=== PATIENT | male | born 1995 | race Caucasian/White ===

== ENCOUNTER 2020-01-24 04:04 | Emergency (ER) | payer SELFPAY ==
[2020-01-24 04:06] VITALS: BP 142/93; PULSE 91; RESP 18; TEMP 36.2; O2SAT 96; BMI 34.9
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
[2020-01-24 04:10] VITALS: RESP 13
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
[2020-01-24] MEDS: sodium chloride 0.9% 1,000 ML 100 ML IV (04:33)
[2020-01-24] MEDS: fentaNYL 50 mcg/mL INJ 2mL 100 MCG IVP (04:33)
[2020-01-24 04:34] VITALS: BP 129/77; PULSE 73; RESP 12; TEMP 36.6; O2SAT 100
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
[2020-01-24 04:38] LABS: Basophils % 0.2 %; Eosinophils # 0.1 10^3/uL (0.0-0.8); Eosinophils % 0.8 %; Hematocrit 44.5 % (42.0-52.0); Hemoglobin 15.6 g/dL (11.7-16.6); Lymphocytes % 12.3 %; Mean Corpuscular HGB Conc 35.1 g/dL (30.0-36.0); Mean Corpuscular Hemoglobin 31.1 pg (28.0-34.0); Mean Corpuscular Volume 88.8 fL (80-94); Mean Platelet Volume 10.7 fL (7.4-10.4); Monocytes # 0.6 10^3/uL (0.2-0.9); Monocytes % 3.7 %; Neutrophils # 13.43 10^3/uL (1.8-7.7); Neutrophils % 82.3 %; Nucleated Red Blood Cells % 0 %; Platelet Count 254 10^3/cmm (130-400); Red Blood Count 5.01 10^6/uL (4.1-5.3); Red Cell Distribution Width 11.5 % (12.1-15.1); White Blood Count 16.3 10^3/uL (4.0-10.0)
[2020-01-24 04:54] LABS: INR 1.04 (0.8-1.2)
[2020-01-24 04:55] LABS: Partial Thromboplastin Time 23.2 SECONDS (23.9-36.7)
[2020-01-24 04:58] LABS: Alanine Aminotransferase 29 U/L (0-41); Albumin Level 4.6 g/dL (3.5-5.2); Alkaline Phosphatase 82 IU/L (40-130); Anion Gap 17.4 (5-19); Aspartate Amino Transferase 29 U/L (0-40); Blood Urea Nitrogen 12 mg/dL (6-20); Calcium 8.6 mg/dL (8.5-10.5); Carbon Dioxide 21 mmol/L (22-29); Chloride 103 mmol/L (98-107); Globulin 2.7 g/dL (1.3-4.6); Glomerular Filtration Rate 90.3 mL/min (90-130); Glucose 105 mg/dL (65-115); Magnesium 2.1 mg/dL (1.7-2.3); Osmolality Calculated 282 mOsm/kg (285-295); Potassium 3.4 mmol/L (3.5-5.1); Sodium 138 mmol/L (136-145); Total Bilirubin 0.4 mg/dL (0.15-1.2); Total Protein 7.3 g/dL (6.6-8.7)
[2020-01-24] MEDS: HYDROmorphone 1 mg/mL INJ 1 mL IVP (05:30)
[2020-01-24] MEDS: propofol 1,000 MG/100 ML INJ 12.5 MG IV (05:30)
[2020-01-24 05:34] VITALS: BP 136/71; PULSE 98; RESP 12; O2SAT 99
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
== END 2020-01-24 05:51 | disposition short-term general hospital (02) ==
PROVIDERS: Emergency Provider Emergency Medicine
DX: S09.8XXA Other specified injuries of head, initial encounter (principal); T07.XXXA Unspecified multiple injuries, initial encounter; V86.59XA Driver of other special all-terrain or other off-road motor vehicle injured in nontraffic accident, initial encounter
CPT/HCPCS: 12345; 31500; 36415; 71045; 72170; 80053; 83735; 85025; 85610; 85730; 86850; 86900; 86920; 94002; 94799; 96365; 96366; 96368; 96375; 99282; 99291; J1170; J2704; J3010; J7030; P9016

== ENCOUNTER 2020-01-26 06:59 | Outpatient (CLI) | payer SELFPAY ==
--- NOTE | 2020-01-26 07:07 | USCV_ITS ---
Kavon Salinas Age: 24 Gender: M : 1995 Exam Date: 01/26/2020 07:14 Ordering Phys: Zita Mackay APN- MARISSA CEREAL MILLER Technologist: Jaleesa Barrow Exam Location: [facility] [place] Indication: RT LOWER EXTREMITY PAIN HISTORY: Lower extremity pain. PROCEDURES: Venous duplex imaging was performed in only the right lower extremity. The following venous structures were evaluated: common femoral vein, profunda vein, proximal portion of the greater saphenous vein, superficial femoral vein, and the popliteal vein. In addition, the posterior tibial and peroneal trunk were evaluated. FINDINGS: Normal 2-D Doppler and augmentation and compressibility throughout the lower extremity venous structures. Additional imaging through the proximal calf veins also reveals no thrombus. Limited evaluation of the greater saphenous vein is patent with no thrombus.. CONCLUSIONS No evidence of right lower extremity DVT. Jeremiah Delgado MD (Electronically Signed) Final Date: 26 January 2020 08:49 S
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
== END 2020-01-26 07:00 | disposition home or self-care (01) ==
PROVIDERS: Visit Provider Nurse Practitioner Family
DX: M79.604 Pain in right leg (principal); V86.95XA Unspecified occupant of 3- or 4- wheeled all-terrain vehicle (ATV) injured in nontraffic accident, initial encounter
CPT/HCPCS: 71046; 71110; 73110; 93971

== ENCOUNTER → 2020-04-15 13:41 | Outpatient (BNVA) | payer SELFPAY | PROVIDERS: Referring Provider Nurse Practitioner Family; Visit Provider Specialist | DX: M25.561 Pain in right knee (principal) | CPT/HCPCS: 73560; 73565 ==

== ENCOUNTER 2020-04-22 08:35 | Outpatient (CLI) | payer SELFPAY ==
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
== END 2020-04-22 08:36 | disposition home or self-care (01) ==
LOC: RADWPI 08:39
PROVIDERS: PCP Nurse Practitioner Family; Visit Provider Specialist
DX: M23.91 Unspecified internal derangement of right knee (principal); R60.0 Localized edema
CPT/HCPCS: 73721

== ENCOUNTER → 2023-03-17 15:01 | Outpatient (BNVA) | payer SELFPAY | PROVIDERS: PCP Nurse Practitioner Family; Visit Provider Nurse Practitioner Family | DX: E66.01 Morbid (severe) obesity due to excess calories (principal); R41.840 Attention and concentration deficit | CPT/HCPCS: 80053; 80061 ==